=== PATIENT | male | born 1960 ===

== ENCOUNTER 2018-07-13 12:55 | Inpatient (IN) | payer OTHER ==
[~2018-07-13] VITALS: Ht 152.4 cm; Wt 66.7 kg
[2018-07-27] MEDS ORDERED: HYZAAR 50-12.51 EACH PO (12:45)
[2018-07-27] MEDS ORDERED: PROTONIX40 MG PO (12:45)
[2018-07-27] MEDS ORDERED: CRESTOR5 MG PO (12:45)
[2018-08-02] MEDS ORDERED: ULTRACET PO (08:19)
[2018-08-02] MEDS ORDERED: INTESTINEX680 M1 PO (08:19)
== END 2018-08-02 11:12 | disposition home or self-care (01) | DRG 395 ==
LOC: O/R 08-01 06:04 → SURG 08-01 06:04
PROVIDERS: Surgery
PROC: 3E0T3BZ Introduction of Anesthetic Agent into Peripheral Nerves and Plexi, Percutaneous Approach (ICD-10-PCS; 2018-08-01)
PROC: 0DBP8ZZ Excision of Rectum, Via Natural or Artificial Opening Endoscopic (ICD-10-PCS; principal; 2018-08-01 08:45)
DX: D3A.026 Benign carcinoid tumor of the rectum (principal); I11.9 Hypertensive heart disease without heart failure; E78.00 Pure hypercholesterolemia, unspecified